=== PATIENT | male | born 1985 | race Two or more races ===

== ENCOUNTER 2021-01-13 19:50 | Emergency (ER) | payer MEDICAID, SELFPAY ==
--- NOTE | ~2021-01-13 | CT_ITS ---
EXAMINATION: CT ABDOMEN AND PELVIS WITHOUT CONTRAST CLINICAL INFORMATION: Rule out incarcerated hernia COMPARISON: None TECHNIQUE: Multidetector volumetric imaging was performed from the superior aspect of the liver through the pubic symphysis. Sagittal and coronal reformatted images were obtained on the technologist's workstation. This CT examination was performed using dose optimization techniques as appropriate, variously including the following: *Automated exposure control *Adjustment of mA and/or kV according to patient size (this includes techniques or standardized protocols for targeted exams where dose is matched to indication/reason for exam; i.e. extremities or head) *Use of iterative reconstruction technique DLP: 690 mGy-cm FINDINGS: LUNG BASES: The visualized lung bases are unremarkable. LIVER, GALLBLADDER, AND BILIARY TREE: The liver demonstrates hypoattenuation suspicious for steatosis. No biliary ductal dilatation is present. The gallbladder is unremarkable with no evidence of radiopaque gallstones, gallbladder wall thickening, or obvious pericholecystic inflammatory changes. PANCREAS: Unremarkable. SPLEEN: Unremarkable. ADRENAL GLANDS: Unremarkable. KIDNEYS AND URETERS: The kidneys are normal in size, shape, and attenuation. No hydronephrosis, hydroureter, or calculi seen. No perinephric stranding. BLADDER: Unremarkable. GASTROINTESTINAL TRACT: The small and large bowel are unremarkable. The appendix is unremarkable. No free fluid or free air is seen. ABDOMINAL WALL: There is a fat-containing umbilical hernia which also contains some fluid. Hernia sac measures approximately 4 cm in diameter, with the neck measuring approximately 1.5 cm in diameter. No bowel extends into the hernia. LYMPH NODES: Normal. VASCULAR: Unremarkable. PELVIC VISCERA: Unremarkable. OSSEOUS STRUCTURES: Unremarkable. CT/CT abdomen pelvis wo con IMPRESSION: 1. Umbilical hernia containing fat and fluid, which may be incarcerated. Hernia sac measures approximately 4 cm in diameter, with a neck diameter of 1.5 cm. No bowel extends into the hernia. 2. Hepatic steatosis.
[2021-01-13 20:29] VITALS: BP 140/95; PULSE 86; RESP 16; TEMP 36.4; O2SAT 99; BMI 30.7
[2021-01-13 20:49] LABS: MANUAL DIFF FLAG NO
[2021-01-13 20:51] LABS: Basophils Percent Auto 0.6 % (0-2); Eosinophils Absolute Auto 0.2 X10*3/uL (0.0-0.4); Eosinophils Percent Auto 2.3 % (0-4); Hematocrit 43.9 % (42-52); Hemoglobin 14.4 g/dl (14.0-18.0); Imm Gran Abs Auto 0.01 X10*3/uL (0.00-0.03); Imm Gran Pct Auto 0.1 % (0.0-0.4); Lymphocytes Absolute Auto 3.1 X10*3/uL (1.2-4.9); Mean Corpuscular HGB Conc 32.8 g/dl (31.0-36.0); Mean Corpuscular Hemoglobin 25.9 pg (27.0-33.0); Mean Corpuscular Volume 79.1 fL (80-98); Mean Platelet Volume 9.8 fL (9.4-12.4); Monocytes Absolute Auto 0.5 X10*3/uL (0.1-1.2); Monocytes Percent Auto 7.5 % (2-11); Neutrophils Percent Auto 44.5 % (45-73); Platelet Count 327 X10*3/uL (160-400); Red Blood Count 5.55 X10*6/uL (4.60-5.80); Red Cell Distribution Width 13.6 % (11.0-16.0); White Blood Count 6.8 X10*3/uL (4.8-10.8)
[2021-01-13 21:14] LABS: Alanine Aminotransferase 62 U/L (0-40); Albumin Level 4.5 g/dL (3.5-5.0); Alkaline Phosphatase 76 U/L (39-117); Anion Gap 12 (12-20); Aspartate Amino Transferase 32 U/L (5-37); Bilirubin Total 0.7 mg/dL (0.0-1.0); Blood Urea Nitrogen 13 mg/dL (9-16); Calcium 9.5 mg/dL (8.4-10.2); Carbon Dioxide 24 mmol/L (22-29); Chloride 102 mmol/L (96-108); Creatinine Clr Calc Pharmacy 124.1; Estimated Glomerular Filt Rate > 60; Glucose Random 227 mg/dL (60-115); Sodium 134 mmol/L (135-145); Total Protein 7.4 g/dL (6.5-8.0)
--- NOTE | 2021-01-14 01:00 | ED_ITS ---
HPI - Abdominal Pain General Chief Complaint: Abdominal Pain Stated Complaint: Hernia? Time Seen by Provider: 01/14/21 00:12 Source: patient Mode of arrival: ambulatory Limitations: no limitations History of Present Illness HPI narrative: Patient comes emergency room complaining of umbilical pain. Patient states that he had an umbilical hernia diagnosed about a year ago. At work he lifts heavy objects. States that this morning he was lifting, then noticed that the hernia is much larger than usual. Reports increased localized pain, no nausea vomiting or diarrhea, reports good p.o. intake, states that earlier today, the hernia was approximately the size of an orange. Patient states that when he was 7 years old, he had an inguinal repair on the left side which has not caused any further issues. Related Data Allergies Allergy/AdvReac Type Severity Reaction Status Date / Time No Known Allergies Allergy Unverified 01/13/21 20:35 [No Known Allergies*] Review of Systems Review of Systems Constitutional : No Weight loss, No Fever, No Chills, No Night Sweats, No F atigue, No Malaise ENT/Mouth : No Hearing loss, No Ear Pain, No Nasal Congestion, No Sinus Pain, No Hoarseness, No sore throat, No Rhinorrhea, No Swallowing Difficulty Eyes: No Eye Pain, No Swelling, No Redness, No Foreign Body, No Discharge, No Vision Changes Cardiovascular : No Chest Pain, No SOB, No Dyspnea on Exertion, No Orthopnea, No Edema, No Palpitations Respiratory : No Cough, No Sputum, No Wheezing, No Smoke Exposure, No Dyspnea Gastrointestinal : No Nausea, No Vomiting, No Diarrhea, No Constipation, complaining of pain in the umbilicus and an umbilical hernia, No Hematochezia, No Melena Genitourinary : no irregular bleeding, No Dysuria, No Urinary Frequency, No Hematuria, No Urinary Incontinence, No Urgency, No Flank Pain, No Urinary Flow Changes, No Hesitancy Musculoskeletal : No joint pain, No Myalgias, No Joint Swelling Skin : No Skin Lesions, No rash Neuro : No Weakness, No Numbness, No Paresthesias, No Loss of Consciousness, No Dizziness, No Headache Psych : No Anxiety/Panic, No Depression, No SI/HI/AH/VH, No Social Issues, Heme/Lymph: No Bruising, No Bleeding,No Lymphadenopathy Endocrine : No Polyuria, No Polydipsia, No Temperature Intolerance Physical Exam Vital Signs: Vital Signs: Last Vital Signs Temp 98.0 F 01/14/21 02:43 Pulse 88 01/14/21 02:43 Resp 14 01/14/21 02:43 BP 131/88 01/14/21 02:43 Pulse Ox 98 01/14/21 02:43 Body Mass Index 30.7 Appearance: Alert. Oriented X3. No acute distress. Eyes: Pupils equal, round and reactive to light. ENT: Pharynx normal. Neck: Normal inspection. Neck supple. No lymph nodes noted. No crepitus CVS: Normal heart rate and rhythm. Pulses normal. Normal S1 and S2 Respiratory: No respiratory distress. Breath sounds normal. No Wheezing. No rales Abdomen: Soft and nontender. No rigidity. No distention. , patient has a palpable protruding hernia through the umbilicus, about the size of a tangerine Skin: Skin warm and dry. Normal skin color. Normal skin turgor. Extremities: No lower extremity edema. No lower extremity edema. No Lacerations. No Rash Neuro: Oriented X 3. No motor deficit. No sensory deficit. Moving all exte rmities. No slurred speech. Course Course Course Narrative: Patient received 1 mg IM of Dilaudid and 2 mg IM of Ativan. Patient was placed in Trendelenburg position. The hernia reduced in size but n ot completely. A CT scan was ordered to rule out incarceration. I reviewed the CT scan, there seems to be a small section of bowel protruding through the umbilicus. The radiology report is pending. Depending on the report, surgery consult may be needed. At this time, patient has mild umbilical discomfort. Sign-out given to Dr. Napier. MDM - Abdominal Pain Lab Data Result diagrams: 01/13/21 20:39 01/13/21 20:39 Labs: Lab Results 01/13/21 01/13/21 01/13/21 Range/Units 20:39 20:39 20:39 WBC 6.8 (4.8-10.8) X10*3/uL RBC 5.55 (4.60-5.80) X10*6/uL Hgb 14.4 (14.0-18.0) g/dl Hct 43.9 (42-52) % MCV 79.1 L (80-98) fL MCH 25.9 L (27.0-33.0) pg MCHC 32.8 (31.0-36.0) g/dl RDW 13.6 (11.0-16.0) % Plt Count 327 (160-400) X10*3/uL MPV 9.8 (9.4-12.4) fL Immature Gran % (Auto) 0.1 (0.0-0.4) % Neut % (Auto) 44.5 L (45-73) % Lymph % (Auto) 45.0 H (20-40) % Long % (Auto) 7.5 (2-11) % Eos % (Auto) 2.3 (0-4) % Baso % (Auto) 0.6 (0-2) % Lymph # (Auto) 3.1 (1.2-4.9) X10*3/uL Long # (Auto) 0.5 (0.1-1.2) X10*3/uL Eos # (Auto) 0.2 (0.0-0.4) X10*3/uL Baso # (Auto) 0.0 (0.0-0.2) X10*3/uL Abs Immat Gran (auto) 0.01 (0.00-0.03) X10*3/uL Absolute Neuts (auto) 3.0 (2.0-8.3) X10*3/uL Absolute Nucleated RBC 0.000 (0.0-0.012) X10*3/uL Nucleated RBC % (auto) 0.0 (0.0-0.2) /100WBC Hold Blue Top SEE NOTE Sodium 134 L (135-145) mmol/L Potassium 4.0 (3.3-5.1) mmol/L Chloride 102 (96-108) mmol/L Carbon Dioxide 24 (22-29) mmol/L Anion Gap 12 (12-20) BUN 13 (9-16) mg/dL Creatinine 0.99 (0.5-1.4) mg/dL Estim Creat Clear Calc 124.1 Estimated GFR > 60 Random Glucose 227 H (60-115) mg/dL Calcium 9.5 (8.4-10.2) mg/dL Total Bilirubin 0.7 (0.0-1.0) mg/dL AST 32 (5-37) U/L ALT 62 H (0-40) U/L Alkaline Phosphatase 76 (39-117) U/L Total Protein 7.4 (6.5-8.0) g/dL Albumin 4.5 (3.5-5.0) g/dL Discharge Plan Discharge Clinical Impression: Umbilical hernia Patient Disposition: Home, Self-Care Instructions: Umbilical Hernia (ED) Additional Instructions: Please follow-up with surgery. If you have any worsening abdominal pain, if the hernia pops out again and your unable to push it back in, please return to emergency room. Otherwise, please call the surgery office and schedule an appointment Referrals: Umang Mccloud MD [Physician] - 2 days (Umbilical hernia) [facility] Past Medical History Medical History Diabetes Umbilical hernia Surgical History (Updated 01/14/21 @ 01:02 by Juana Cummings MD) H/O inguinal hernia repair Social History Social History Smoked in Last 30 Days: No Advance Directives: No Advance Directives Information Provided: No
[2021-01-14] MEDS: HYDROmorphone HCl 1 MG/ML SYRINGE IM (01:27)
[2021-01-14] MEDS: LORazepam 2 MG/ML VIAL IM (01:28)
[2021-01-14 02:43] VITALS: BP 131/88; PULSE 88; RESP 14; TEMP 36.7; O2SAT 98
== END 2021-01-14 04:23 | disposition home or self-care (01) ==
PROVIDERS: Emergency Provider Emergency Medicine Emergency Medical Services
DX: K42.9 Umbilical hernia without obstruction or gangrene (principal)
CPT/HCPCS: 36415; 74176; 80053; 85025; 96372; 99284; J1170; J2060

== ENCOUNTER 2021-01-22 08:09 | Outpatient (REF) | payer MEDICAID, SELFPAY | END 2021-01-22 08:10 | disposition home or self-care (01) | LOC: HO.LAB 08:09 | PROVIDERS: Visit Provider Internal Medicine | DX: Z20.822 Contact with and (suspected) exposure to COVID-19 (principal) | CPT/HCPCS: 36415; C9803; U0003; U0005 ==